=== PATIENT | female | born 1935 ===

== ENCOUNTER 2021-07-07 05:03 | Inpatient (IN) ==
[2021-07-07] MEDS ORDERED: NS 0.9% 1000 ml BAG 1,000 ML IV ONE (06:03)
[2021-07-07 07:24] LABS: Urine Appearance Clear; Urine Bilirubin Negative (Negative); Urine Blood Negative (Negative); Urine Color Yellow; Urine Glucose Negative (Negative); Urine Ketones Negative (Negative); Urine Nitrite Negative (Negative); Urine Protein Negative (Negative); Urine Specific Gravity 1.009 (1.002-1.030); Urine Urobilinogen Negative (Negative)
[2021-07-07 08:40] LABS: Hematocrit 26 % (35-47); Hemoglobin 8.8 g/dL (12.0-16.0); Mean Corpuscular HGB Conc 34 g/dL (31-36); Mean Corpuscular Hemoglobin 32 pg (27-31); Mean Corpuscular Volume 95 fL (80-97); Mean Platelet Volume 8.4 fL (7.4-10.4); Platelet Count 187 10^3/uL (150-450); Red Blood Count 2.76 10^6 /uL (3.70-4.87); Red Cell Distribution Width 26 % (10-15); White Blood Count 5.9 10^3/uL (3.5-10.8)
[2021-07-07 08:57] LABS: ALT 31 U/L (7-52); AST 51 U/L (13-39); Albumin 2.5 g/dL (3.2-5.2); Albumin/Globulin Ratio 0.8 (1-3); Alkaline Phosphatase 111 U/L (35-149); Anion Gap 5 mmol/L (2-11); Blood Urea Nitrogen 25 mg/dL (6-24); CO2 Carbon Dioxide 22 mmol/L (22-32); Calcium 8.5 mg/dL (8.6-10.3); Chloride 102 mmol/L (101-111); EGFR African American 49.1 (>60); EGFR Non-African American 40.5 (>60); Globulin 3.3 g/dL (2-4); Glucose 86 mg/dL (70-100); Magnesium 1.8 mg/dL (1.9-2.7); Potassium 4.6 mmol/L (3.5-5.0); Sodium 129 mmol/L (135-145); Total Protein 5.8 g/dL (6.4-8.9)
[2021-07-07 09:12] LABS: ABS Eosinophils 0.2 10^3/ul (0-0.6); ABS Lymphocytes 1.9 10^3/ul (1.0-4.8); ABS Monocytes 0.6 10^3/ul (0-0.8); ABS Neutrophils 3.2 10^3/ul (1.5-7.7); Eosinophil % 3.5 %; Lymphocyte % 31.6 %; Nucleated Red Blood Cells % 0.1
[2021-07-07 09:33] LABS: Troponin I 0.07 ng/mL (<0.03)
[2021-07-07 09:34] LABS: TSH Ultra Thyroid Stim Horm 17.15 mcIU/mL (0.34-5.60)
[2021-07-07] MEDS ORDERED: Iodixanol (CONTRAST) 320 MG/ML 100 ML SDV IV ONE (10:20)
[2021-07-07 10:50] LABS: T4, Total 7.84 mcg/dL (6.09-12.23)
[2021-07-07 11:00] LABS: Total T3 34 ng/dL (87-178)
[2021-07-07] MEDS ORDERED: Magnesium Sulfate 2 gm BAG 2 GM/50 ML BAG IVPB ONE (11:31)
[2021-07-07 13:30] LABS: Rapid COVID-19 Molecular Undetected (Undetected)
[2021-07-07] MEDS ORDERED: levETIRAcetam 1000MG IVPREMIX 1,000 MG/100 ML BAG IVPB ONE (13:46)
[2021-07-07 15:05] LABS: C Reactive Protein 8.87 mg/L (<8.01)
[2021-07-07] MEDS ORDERED: levETIRAcetam 500 MG IVPREMIX 500 MG/100 ML BAG IVPB ONE (15:13)
[2021-07-07 17:33] LABS: Troponin I 0.07 ng/mL (<0.03)
[2021-07-07] MEDS: NS 0.9% 1000 ml BAG 1,000 ML IV SCH (19:44)
[2021-07-07] MEDS: Pantoprazole VIAL 40 MG VIAL IV SCH (19:44)
[2021-07-07] MEDS: methylPREDNISolone SOD 40 mg/ml 1 ml VIAL IV SCH (19:44)
[2021-07-07] MEDS: Heparin 5000 UNITS/ML 1 mL VIAL SUBCUT SCH (21:24)
[2021-07-08] MEDS: Heparin 5000 UNITS/ML 1 mL VIAL SUBCUT SCH ×2 (05:47→13:00)
[2021-07-08] MEDS: NS 0.9% 1000 ml BAG 1,000 ML IV SCH (05:49)
[2021-07-08] MEDS ORDERED: Levothyroxine 100 MCG/5 ML VIAL IV SCH ×2 (06:00)
[2021-07-08 06:28] LABS: Hematocrit 32 % (35-47); Hemoglobin 10.4 g/dL (12.0-16.0); Mean Corpuscular HGB Conc 33 g/dL (31-36); Mean Corpuscular Hemoglobin 31 pg (27-31); Mean Corpuscular Volume 96 fL (80-97); Mean Platelet Volume 8.7 fL (7.4-10.4); Platelet Count 219 10^3/uL (150-450); Red Blood Count 3.34 10^6 /uL (3.70-4.87); Red Cell Distribution Width 26 % (10-15); White Blood Count 4.6 10^3/uL (3.5-10.8)
[2021-07-08 06:49] LABS: Calcium 8.6 mg/dL (8.6-10.3); EGFR African American 44.9 (>60); EGFR Non-African American 37.1 (>60); Potassium 4.9 mmol/L (3.5-5.0)
[2021-07-08 07:57] LABS: ABS Lymphocytes 0.7 10^3/ul (1.0-4.8); ABS Monocytes 0.2 10^3/ul (0-0.8); ABS Neutrophils 3.6 10^3/ul (1.5-7.7); Eosinophil % 0.1 %; Lymphocyte % 16.1 %; Nucleated Red Blood Cells % 0.3
[2021-07-08] MEDS ORDERED: levETIRAcetam 500 MG IVPREMIX 500 MG/100 ML BAG IV SCH (08:00)
[2021-07-08] MEDS: methylPREDNISolone SOD 40 mg/ml 1 ml VIAL IV SCH (09:11)
[2021-07-08] MEDS: Pantoprazole VIAL 40 MG VIAL IV SCH (09:12)
[2021-07-08] MEDS ORDERED: Furosemide 20 mg/2 ml IV VIAL IV SCH (17:00)
[2021-07-08] MEDS ORDERED: LORazepam 2 mg VIAL 1 ml IV PUSH PRN (18:41)
[2021-07-08] MEDS ORDERED: Morphine ORAL CONCENTRATE 5 MG/0.25 ML ORAL.SYRIN SL PRN (18:41)
[2021-07-08] MEDS ORDERED: Lorazepam PYXIS KEY PRN (18:41)
[2021-07-08] MEDS ORDERED: Atropine 1% (ORAL/SL) 15 ML BTL SL PRN (18:48)
[2021-07-08] MEDS ORDERED: Morphine 2 MG/ML SYRINGE IV PRN (18:49)
[2021-07-08 19:37] LABS: Vitamin B12 1135 pg/mL (180-914)
[2021-07-09] MEDS ORDERED: NS 0.9% 500 ml BAG 500 ML IV ONE (15:13)
[2021-07-10] MEDS ORDERED: Heparin 5000 UNITS/ML 1 mL VIAL SUBCUT SCH (14:00)
[2021-07-10] MEDS ORDERED: Ondansetron 4 mg VIAL 2 MG/ML 2 ml VIAL ONE (17:24)
[2021-07-10] MEDS ORDERED: Morphine ORAL CONCENTRATE 5 MG/0.25 ML ORAL.SYRIN SL PRN (17:25)
[2021-07-10 18:21] VITALS: BP 70/30
== END 2021-07-11 09:19 | disposition expired | DRG 65 ==
LOC: ED 05:03 → MEDTELE 14:18 → SUATTDRO 14:18 → MEDTELE 18:02
PROVIDERS: ADMIT Internal Medicine; ATTEND Hospitalist